=== PATIENT | male | born 1995 | race Caucasian/White ===

== ENCOUNTER 2016-07-17 13:43 | Emergency (ER) | payer OTHER | END 2016-07-17 15:24 | disposition home or self-care (01) | LOC: ER1 13:43 | DX: H00.014 Hordeolum externum left upper eyelid (principal); F17.210 Nicotine dependence, cigarettes, uncomplicated; Z88.1 Allergy status to other antibiotic agents | CPT/HCPCS: 99283 ==

== ENCOUNTER 2016-07-20 18:39 | Emergency (ER) | payer OTHER | END 2016-07-20 20:50 | disposition home or self-care (01) | LOC: ER1 18:39 | DX: R21 Rash and other nonspecific skin eruption (principal) | CPT/HCPCS: 99282 ==